=== PATIENT | male | born 1945 | race Caucasian/White ===

== ENCOUNTER 2017-09-23 11:35 | Outpatient (CLI) | payer MEDICARE ==
[2017-09-23 12:34] LABS: #Basophils 0.1 thou/uL (0.0-0.2); #Eosinphils 0.3 thou/uL (0.0-0.7); #Lymphocytes 1.7 thou/uL (1.20-3.40); #Monocytes 0.5 thou/uL (0.11-0.59); #Neutrophils 3.1 thou/uL (1.40-6.50); %Eosinophils 4.7 % (0.0-10.0); %Lymphocytes 29.2 % (21.0-51.0); %Monocytes 9.6 % (0.0-10.0); %Neutrophils 55.5 % (42.0-75.0); Hemoglobin 13.4 g/dL (14.0-18.0); Mean Corpuscular HGB CONC 31.2 g/dL (32.0-36.0); Mean Corpuscular Hemoglobin 27.5 pg (27.0-31.0); Mean Corpuscular Volume 88.1 fl (80.0-94.0); Mean Platelet Volume 6.4 fL (7.4-10.4); Platelet Count 288 thou/uL (130-400); Red Blood Cell (RBC) Count 4.87 mill/uL (4.70-6.10); White Blood Cell (WBC) Count 5.7 thou/uL (4.8-10.8)
[2017-09-23 12:55] LABS: Anion Gap 10 mmol/L (10-20); BUN (Urea Nitrogen) 8 mg/dL (8.4-25.7); Calc. Creatinine Clearance 0 mL/min (70-130); Calcium 9.6 mg/dL (7.8-10.44); Carbon Dioxide 29 mmol/L (23-31); Chloride 104 mmol/L (98-107); Estimated GFR-MDRD Greater than 90; Glucose 93 mg/dL (83-110); Potassium 4.5 mmol/L (3.5-5.1); Sodium 138 mmol/L (136-145)
== END 2017-09-23 11:36 | disposition home or self-care (01) ==
LOC: LABBT 11:35
PROVIDERS: ATTEND Surgery
DX: Z01.812 Encounter for preprocedural laboratory examination (principal); K43.9 Ventral hernia without obstruction or gangrene
CPT/HCPCS: 80048; 85025

== ENCOUNTER 2017-09-27 09:48 | Day surgery (SDC) | payer MEDICARE ==
[2017-09-23 11:45] VITALS: BMI 25.4
[2017-09-27] MEDS ORDERED: CEFAZOLIN/Water 2 GM/20 ML SYRINGE ONE (10:12)
[2017-09-27] MEDS ORDERED: Bupivacaine 0.25% HCL 30 ML VIAL ONE (10:37)
[2017-09-27] MEDS ORDERED: Lidocaine 1% w/Epinephrine 1:200K 30 ML VIAL ONE (10:37)
[2017-09-27] MEDS ORDERED: Fentanyl 100 MCG/2 ML VIAL ONE (10:42)
[2017-09-27] MEDS ORDERED: HYDROcodone/Acetaminophen 5/325 mg Tablet ONE ×2 (14:45)
[2017-09-27] MEDS ORDERED: Propofol 200 MG/20 ML VIAL ONE (16:17)
[2017-09-27] MEDS ORDERED: Lidocaine 1% PF 5 ML VIAL ONE (16:17)
[2017-09-27] MEDS ORDERED: Dexamethasone 20 MG/5 ML VIAL ONE (16:17)
[2017-09-27] MEDS ORDERED: Ondansetron HCl/PF 4 MG/2 ML Vial ONE (16:17)
[2017-09-27] MEDS ORDERED: Glycopyrrolate 0.2 MG/ML 5 ML SYRINGE ONE (16:17)
--- NOTE | 2017-09-28 02:43 | OP ---
DATE OF PROCEDURE: 09/27/2017 PREOPERATIVE DIAGNOSES: 1. Epigastric hernia. 2. Left lower abdominal ventral (spigelian hernia). POSTOPERATIVE DIAGNOSES: 1. Epigastric hernia. 2. Left lower abdominal ventral (spigelian hernia). PROCEDURES: 1. Ventral hernia repair with mesh, 8-cm Parietex. 2. Epigastric hernia repair without mesh. SURGEON: Ruddy Willett MD ANESTHESIA: General. ESTIMATED BLOOD LOSS: Minimal. COMPLICATIONS: None. TECHNIQUE: The patient was taken to the operating room and placed supine on the table. After genera l anesthetic was obtained, a Perez was placed. OG tube was used to decompress the stomach. The abdo men was shaved, prepped and draped in a sterile fashion. Left subcostal 5-mm Optiview trocar was teressa sherine in the usual fashion. High-flow pneumoperitoneum was obtained. A second 5-mm incision was made in the right lower quadrant. There was an obvious epigastric hernia with preperitoneal fat could be seen, going up through a small defect, there was also evidence of the spigelian hernia in the left lo wer quadrant along the semilunar line. Incision was made transversely over this hernia in the left l ower quadrant. Pneumoinsufflation was let down and the ports were removed. Dissection was taken kenyon n to the rectus muscle which was split, exposing the posterior defect. The posterior defect was clos ed using a PDS suture. The preperitoneal space was bluntly dissected using finger dissection, 8-cm P arietex mesh brought into the sterile field and placed in this preperitoneal space. Transfascial sut ures were placed on all 4 quadrants through the anterior fascia to hold it in place. The anterior fa scia was then closed over the top using running PDS suture. Local anesthetic was applied. The wound was irrigated. The incision was closed using 3-0 Vicryl, 4-0 Monocryl, and Dermabond. Next, a vert ical incision was made over the palpable abnormality above the umbilicus. Cautery was used to dissec t down to a small hernia sac which was dissected all the way from its origin in the midline linea alb a. There was only a 5-mm defect here, the fat was removed and discarded. The defect was closed usin g interrupted Ethibond suture. The wound was irrigated. Local anesthetic was applied. The incision is closed using 3-0 Vicryl, 4-0 Monocryl, and Dermabond. The two laparoscopic port sites were close d using 4-0 Monocryl and Dermabond. The patient was en route to recovery in stable condition. All i nstrument counts, needle counts, and lap counts were correct.
== END 2017-09-27 17:30 | disposition home or self-care (01) ==
LOC: SDC 09:48
PROVIDERS: ATTEND Surgery
PROC: 0WUF0JZ Supplement Abdominal Wall with Synthetic Substitute, Open Approach (ICD-10-PCS; principal; 2017-09-27)
DX: K43.9 Ventral hernia without obstruction or gangrene (principal); K22.70 Barrett's esophagus without dysplasia; M19.90 Unspecified osteoarthritis, unspecified site; I25.10 Atherosclerotic heart disease of native coronary artery without angina pectoris; E78.5 Hyperlipidemia, unspecified; I10 Essential (primary) hypertension; E03.9 Hypothyroidism, unspecified; K21.9 Gastro-esophageal reflux disease without esophagitis; Z79.82 Long term (current) use of aspirin; Z79.1 Long term (current) use of non-steroidal anti-inflammatories (NSAID); Z79.899 Other long term (current) drug therapy; Z95.5 Presence of coronary angioplasty implant and graft; Z96.653 Presence of artificial knee joint, bilateral; Z96.642 Presence of left artificial hip joint; Z96.611 Presence of right artificial shoulder joint; Z90.11 Acquired absence of right breast and nipple; Z90.79 Acquired absence of other genital organ(s); Z98.890 Other specified postprocedural states
CPT/HCPCS: 49590; C1781; J1100; J2001; J2405; J2704; J3010; S0020

== ENCOUNTER 2018-01-09 13:33 | Outpatient (CLI) | payer MEDICARE ==
[2018-01-09 14:58] LABS: Hemoglobin 13.6 g/dL (14.0-18.0); Mean Corpuscular HGB CONC 32.4 g/dL (32.0-36.0); Mean Corpuscular Hemoglobin 28.5 pg (27.0-31.0); Mean Corpuscular Volume 88.2 fl (80.0-94.0); Mean Platelet Volume 6.6 fL (7.4-10.4); Platelet Count 295 thou/uL (130-400); Red Blood Cell (RBC) Count 4.77 mill/uL (4.70-6.10); White Blood Cell (WBC) Count 6.5 thou/uL (4.8-10.8)
[2018-01-09 15:23] LABS: Anion Gap 10 mmol/L (10-20); BUN (Urea Nitrogen) 8 mg/dL (8.4-25.7); Calc. Creatinine Clearance 0 mL/min (70-130); Calcium 9.7 mg/dL (7.8-10.44); Carbon Dioxide 29 mmol/L (23-31); Chloride 101 mmol/L (98-107); Estimated GFR-MDRD Greater than 90; Glucose 98 mg/dL (83-110); Potassium 3.9 mmol/L (3.5-5.1); Sodium 136 mmol/L (136-145)
== END 2018-01-09 13:34 | disposition home or self-care (01) ==
LOC: LABBT 13:33
PROVIDERS: ATTEND Surgery
DX: Z01.812 Encounter for preprocedural laboratory examination (principal); K43.2 Incisional hernia without obstruction or gangrene
CPT/HCPCS: 80048; 85027

== ENCOUNTER → 2018-01-11 | Day surgery (SDC) | payer MEDICARE ==
[2018-01-09 13:43] VITALS: BMI 24.3
[~2018-01-11] MED LIST: Bupivacaine/Epinephrine 0.25% 30 ML VIAL ONE; CEFAZOLIN/Water 2 GM/20 ML SYRINGE ONE; Dexamethasone 20 MG/5 ML VIAL ONE; Fentanyl 250 MCG/5 ML VIAL ONE; Glycopyrrolate 0.2 MG/ML 5 ML SYRINGE ONE; HYDROcodone/Acetaminophen 5/325 mg Tablet ONE; Lidocaine 1% PF 5 ML VIAL ONE; Midazolam HCl 2 mg/2 ml Vial ONE; Morphine 4 MG/ML VIAL ONE; Ondansetron HCl/PF 4 MG/2 ML Vial ONE; PROPOFOL 200 MG/20 ML VIAL ONE
--- NOTE | 2018-01-12 11:37 | OP ---
DATE OF PROCEDURE: 01/11/2018 PREOPERATIVE DIAGNOSIS: Ventral/spigelian hernia, left. POSTOPERATIVE DIAGNOSIS: Ventral/spigelian hernia, left. PROCEDURE: Laparoscopic ventral hernia repair with the da Nguyễn robot with [address] mesh. SURGEON: Ruddy Willett M.D. ANESTHESIA: General. ESTIMATED BLOOD LOSS: Minimal. COMPLICATIONS: None. FINDINGS: There is a spigelian hernia along the left semilunar line. TECHNIQUE: The patient was taken to the operating room and placed supine on the table. After genera l anesthetic was obtained, a Perez was placed. The abdomen was shaved, prepped, and draped in a ster ile fashion. Left subcostal 5-mm Optiview trocar was placed in the usual fashion without injury. Hi gh-flow pneumoperitoneum was obtained. This was switched out to an 8 mm robot trocar. Camera port w as placed. A camera 11 port is placed right subcostal. An additional assist robot port is placed in the right lower quadrant. All ports were docked to the robot. Surgeon goes to the console. There were some adhesions to poste rior abdominal wall that were taken down. There was some preperitoneal fat that could be seen going out through a small defect along the left semilunar line. The fat was pulled out. The peritoneum wa s taken down exposing this small 2 cm defect. This defect was closed using 0 V-Loc primarily, [address] mesh brought into the sterile field, placed into the camera port. It was able to be plac ed against the posterior fascia and held in place using the needle from the V-Loc. The nonadherent s urface was left down against the abdominal viscera. A 3-0 V-Loc suture is used to sew starting at th e 3 o'clock position around superior and inferiorly to secure the mesh to the posterior fascia. All needles removed from the abdomen, no injury to any intra-abdominal structures. All port sites were i nfiltrated using local anesthetic. All ports are removed under camera visualization without bleeding . Pneumoperitoneum was let down. 4-0 Monocryl was used to close all skin incisions followed by Derm abond. The patient is en route to recovery in stable condition. All instrument counts, needle count s, lap counts are correct.
== END ==
LOC: SDC 12:55
PROVIDERS: ATTEND Surgery
PROC: 0WUF4JZ Supplement Abdominal Wall with Synthetic Substitute, Percutaneous Endoscopic Approach (ICD-10-PCS; principal; 2018-01-11)
DX: K43.9 Ventral hernia without obstruction or gangrene (principal); I25.10 Atherosclerotic heart disease of native coronary artery without angina pectoris; E78.5 Hyperlipidemia, unspecified; I10 Essential (primary) hypertension; E03.9 Hypothyroidism, unspecified; K21.9 Gastro-esophageal reflux disease without esophagitis; N40.0 Benign prostatic hyperplasia without lower urinary tract symptoms; M19.90 Unspecified osteoarthritis, unspecified site; E78.00 Pure hypercholesterolemia, unspecified; K22.70 Barrett's esophagus without dysplasia; Z79.82 Long term (current) use of aspirin; Z79.51 Long term (current) use of inhaled steroids; Z79.899 Other long term (current) drug therapy
CPT/HCPCS: 96374; J1100; J2001; J2250; J2270; J2405; J2704; J3010

== ENCOUNTER 2019-01-12 13:58 | Outpatient (CLI) | payer MEDICARE ==
--- NOTE | 2019-01-12 14:59 | CT ---
CT abdomen and pelvis with IV and oral contrast HISTORY: Abdominal pain. Possible umbilical hernia. FINDINGS: Lung bases are slightly hyperinflated. Calcification throughout the arterial structures. Mi ld nonspecific circumferential wall thickening of the gastric fundus. Very small hiatal hernia. Calcified granulomata of the spleen and liver are consistent with healed granulomatous disease. Irreg ular shaped, lamellated stone in the gallbladder lumen. No evidence of bowel obstruction. Appendix not well delineated. No inflammation is apparent. There is subtle sheetlike fat stranding immediately to the left of the umbilicus. No fat protrudes in to the umbilicus. Degenerative changes lumbar spine. Pelvis partially obscured by left hip prosthesis. Diverticula blue e from the colon without adjacent inflammation. IMPRESSION: No evidence of umbilical hernia or intra-abdominal inflammation. Cholelithiasis. Diverticulosis. No evidence of diverticulitis. Small hiatal hernia.
== END 2019-01-12 13:59 | disposition home or self-care (01) ==
LOC: BICCT 13:58
PROVIDERS: ATTEND Surgery
DX: K43.9 Ventral hernia without obstruction or gangrene (principal); K80.20 Calculus of gallbladder without cholecystitis without obstruction; K57.30 Diverticulosis of large intestine without perforation or abscess without bleeding; K44.9 Diaphragmatic hernia without obstruction or gangrene
CPT/HCPCS: 74177; 82565